=== PATIENT | female | born 1985 | race Caucasian/White ===

== ENCOUNTER 2016-09-26 20:57 | Emergency (ER) | payer BC ==
[2016-09-26 21:04] VITALS: BP 126/66; PULSE 89; RESP 16; TEMP 98.1; O2SAT 98
--- NOTE | 2016-09-26 21:30 | EDPHY ---
H & P Stated Complaint: R dorsal foot redness and swelling since HPI/ROS: CHIEF COMPLAINT: Spider bite HISTORY OF PRESENT ILLNESS: Patient is here with complaints of possible spider bite to the right foot. This with recurred night while in [place]. She did not witness it. She did feel something bite her on the top of the foot. She has had mild to moderate pain and some redness on the top of the foot since that time. Pain has progressed to moderate over the day. There is erythema of the dorsum of the foot. There is pain with ambulation palpation. It is minimal at rest. No radiating pain. No difficulty with dorsiflexion or plantar flexion. No erythema of the avila, calf or leg. No edema of the calf. It is an isolated, focal area on the dorsum of the right foot. No fever or chills. No chest pain. No shortness of breath. No history of venous thrombolic event. No other associated complaints or modifying factors. Tetanus status is up-to-date. REVIEW OF SYSTEMS: Ten systems reviewed and are negative unless otherwise noted in the HPI EXAMINATION General Appearance: Alert, no distress Cardiovascular: Pulses normal throughout. Symmetric DP pulses are 2+. Brisk cap refill Neurological: A&O, sensory symmetric, strength symmetric Skin: Warm and dry. Erythema over the dorsum of the right foot with a diameter of approximately 4 cm. There is no erythema of the right calf or leg. No edema of the right calf or leg. No palpable cords. No evidence of DVT. Extremities: Tenderness over the dorsum of the right foot over the area cellulitis. No tenderness of the calf. No pain with passive dorsiflexion or plantar flexion of the calf. No difficulty with range of motion. Psychiatric: Mood and affect normal DIFFERENTIAL DIAGNOSES: Including but not limited to cellulitis, abscess, DVT, osteomyelitis MDM: 9:25 p.m. Cellulitis of the dorsum of the right foot. No IV drug injection. No evidence of osteomyelitis by history, examination or vital signs. No history of diabetes. She is fully ambulatory with no limited range of motion. Plan for treatment of cellulitis with Bactrim and Keflex. Checking a urine prior to prescribing the Bactrim and she is uncertain if she could be . She has no acute distress and neurovascular intact. 10:00 p.m. Negative urine test. Treat with Bactrim and Keflex. Recommend that she return here in 1-2 days if no improvement. Recommend return sooner for any fever, worsening redness, redness of the calf, edema of the calf. She is comfortable with this plan and discharged home fully ambulatory in stable condition. ED Precautions: Worsening pain. Erythema, edema, cyanosis, pallor, paresthesia or anesthesia. SUPERVISION: This patient was independently evaluated without direct examination by the attending physician. Case was discussed with attending physician. Source: Patient Exam Limitations: No limitations - Personal History LMP (Females 10-55): Over 28 Days Ago Current Tetanus/Diphtheria Vaccine: Yes Tetanus Vaccine Date: less thank 5 years - Medical/Surgical History Hx Asthma: No Hx Chronic Respiratory Disease: No Hx Diabetes: No Hx Cardiac Disease: No Hx Renal Disease: No Hx Cirrhosis: No Hx Alcoholism: No Hx HIV/AIDS: No Hx Splenectomy or Spleen Trauma: No Other PMH: no PSH and PMH - Social History Smoking Status: Former smoker Constitutional: Initial Vital Signs Temperature (C) 98.1 F 09/26/16 21:01 Heart Rate 89 09/26/16 21:01 Respiratory Rate 16 09/26/16 21:01 Blood Pressure 126/66 H 09/26/16 21:01 O2 Sat (%) 98 09/26/16 21:01 O2 Delivery Mode Room Air Allergies/Adverse Reactions: No Known Allergies Allergy (Unverified 09/26/16 21:01) Home Medications: Medication Instructions Recorded Cephalexin [Keflex (*)] 500 mg PO QID #30 cap 09/26/16 Sulfamethox/Tmp 800/160 mg 2 tab PO BID 10 Days 09/26/16 [Bactrim Ds] Medical Decision Making - Data Points Laboratory Results: 09/26/16 21:20 Urine Test NEGATIVE Medications Given: Discontinued Medications Cephalexin (Keflex 500 Mg Prepack#4) 1 btl TAKEHOME EDNOW ONE PRN Reason: Protocol Stop: 09/26/16 21:34 Last Admin: 09/26/16 22:10 Dose: 1 btl Trimethoprim/Sulfamethoxazole (Bactrim Ds Prepack#2) 1 btl TAKEHOME EDNOW ONE Stop: 09/26/16 21:34 Last Admin: 09/26/16 22:12 Dose: 1 btl Departure - Departure Disposition: Home, Routine, Self-Care Clinical Impression: Cellulitis of foot without toes, right Condition: Good Instructions: Cephalexin (By mouth), Sulfamethoxazole/Trimethoprim (By mouth), Cellulitis (ED) Additional Instructions: Antibiotics as discussed. Return here in 1-2 days for recheck of wound if no improvement. Return sooner for worsening of symptoms, fever, chills, edema of the calf or redness of the calf Referrals: NONE *PRIMARY CARE P,. [Primary Care Provider] - As per Instructions Mojgan Urban DO [Doctor of Osteopathy] - As per Instructions Prescriptions: Cephalexin [Keflex (*)] 500 mg PO QID #30 cap Sulfamethox/Tmp 800/160 mg [Bactrim Ds] 2 tab PO BID 10 Days
[2016-09-26] MEDS ORDERED: CEPHALEXIN 500MG PREPACK#4 BTL TAKEHOME ONE (21:33)
[2016-09-26] MEDS ORDERED: SULFAMET/TMP DS PREPACK#2 BTL TAKEHOME ONE (21:33)
== END 2016-09-26 22:12 | disposition home or self-care (01) ==
DX: M79.89 Other specified soft tissue disorders (principal); L03.115 Cellulitis of right lower limb; Z87.891 Personal history of nicotine dependence

== ENCOUNTER 2016-09-27 20:23 | Emergency (ER) | payer BC, OTHER ==
[2016-09-27 20:30] VITALS: TEMP 99.1; O2SAT 99
--- NOTE | 2016-09-27 21:13 | EDPHY ---
H & P Stated Complaint: spider bite 1w ago; swelling/color worse since ER check last night - Personal History LMP (Females 10-55): Over 28 Days Ago Current Tetanus/Diphtheria Vaccine: Yes Current Tetanus Diphtheria and Acellular Pertussis (TDAP): Yes Tetanus Vaccine Date: less than 5 years - Medical/Surgical History Hx Asthma: No Hx Chronic Respiratory Disease: No Hx Diabetes: No Hx Cardiac Disease: No Hx Renal Disease: No Hx Cirrhosis: No Hx Alcoholism: No Hx HIV/AIDS: No Hx Splenectomy or Spleen Trauma: No Other PMH: no PSH and PMH - Social History Smoking Status: Former smoker Time Seen by Provider: 09/27/16 21:01 HPI/ROS: CHIEF COMPLAINT: Right foot swelling HISTORY OF PRESENT ILLNESS: 30-year-old immunocompetent female with no history of chronic skin infection, no history of MRSA seen the ER yesterday afternoon for possible spider bite like lesion to her dorsal right foot started on Bactrim and Keflex in the ER complaining of worsening erythema, induration, swelling to the right foot after taking her medications as prescribed . She has been walking around on area has not been keeping the area consistently elevated.. No fever no chills no nausea no vomiting. REVIEW OF SYSTEMS: A ten point review of systems was performed and is negative with the exception of the items mentioned in the HPI PAST MEDICAL & SURGICAL HISTORY: No history of chronic skin infections/MRSA SOCIAL HISTORY: nonsmoker PHYSICAL EXAM (Prior to examination, patient consented to physical exam, hands were washed and my usual and customary physical exam procedures followed) 1) GENERAL: Well-developed, well-nourished, alert and oriented. Appears to be in no acute distress. 2) HEAD: Normocephalic 3) HEENT: sclera anicteric 4) NECK: Full range of motion, no meningeal signs. 5) LUNGS: Clear auscultation bilaterally, no wheezes, no rhonchi, no retractions. 6) HEART: Regular rate and rhythm 7) ABDOMEN: No guarding, no rebound, no focal tendernes, 8) MUSCULOSKELETAL: erythema to the right foot 9) BACK: no visual or palpable abnormality. 10) SKIN: Right foot: There is a central lesion midfoot with diffuse erythema , induration, tenderness. Compartments are soft. Dorsiflexion plantar flexion of the toes elicits no pain. 11) Psychiatric: Patient is oriented X 3, there is no agitation. DIFFERENTIAL DIAGNOSIS: in no particular include but limited to cellulitis, abscess, necrotizing fasciitis (Chrissy Balderrama Verena) Constitutional: Initial Vital Signs Temperature (C) 37.3 C 09/27/16 20:27 Heart Rate 87 09/27/16 20:27 Respiratory Rate 16 09/27/16 20:27 Blood Pressure 110/68 09/27/16 20:27 O2 Sat (%) 99 09/27/16 20:27 O2 Delivery Mode Room Air Allergies/Adverse Reactions: No Known Allergies Allergy (Verified 09/28/16 13:42) Home Medications: Medication Instructions Recorded Cephalexin [Keflex (*)] 500 mg PO QID #30 cap 09/26/16 Sulfamethox/Tmp 800/160 mg 2 tab PO BID 10 Days 09/26/16 [Bactrim Ds] Cipro 09/28/16 Medical Decision Making ED Course/Re-evaluation: 9:12 p.m.: I reviewed the patient's medical records. She has taken 24 hours of antibiotics and has mild progression of symptoms. I do not think that antibiotics are indicated as I do not think that a sufficient course of outpatient antibiotics have been completed yet. The patient was also seen exam by Dr. Jay Deshpande. I recommended IV antibiotics, discharge and elevation as she notes that she has not been keeping the area consistently elevated (Chrissy Balderrama Verena) Other Provider: PHYSICIAN DOCUMENTATION: The patient was evaluated and managed by the Physician Hostage Negotiator and myself. I have reviewed the chart and agree with the findings and plan of care as documented. In addition, I examined the patient myself at [id number]. History confirmed as patient with recent sunburn after a river trip to the [place] , causing cracking on the dorsum of both feet. Physical findings as follows: Some redness and warmth and tenderness to the dorsum of the right foot but no fluctuance and no lymphangitis. No eschar or blisters. No crepitus. She has taken 1 day of oral antibiotics. Patient does not look septic or toxic. I think it is reasonable for her to continue with oral antibiotics and better immobilization of her foot as she has been walking around in flip-flops. I think that abscess or fasciitis or other deep space infection is not likely. I am the secondary supervising physician. (Jay Deshpande) - Data Points Laboratory Results: Laboratory Results 09/27/16 21:25 09/27/16 21:25 Medications Given: Discontinued Medications Vancomycin/Sodium Chloride (Vancomycin 1 Gm (Premix)) 250 mls @ 250 mls/hr IV EDNOW ONE PRN Reason: Protocol Stop: 09/27/16 22:25 Last Admin: 09/27/16 21:44 Dose: 250 mls Ketorolac Tromethamine (Toradol) 15 mg IVP EDNOW ONE Stop: 09/27/16 22:06 Last Admin: 09/27/16 22:05 Dose: 15 mg Departure - Departure Disposition: Home, Routine, Self-Care Clinical Impression: Cellulitis of right foot Condition: Good Instructions: Cellulitis (ED) Additional Instructions: Keep taking your Bactrim and Keflex antibiotics until finished. Keep your foot elevated whenever possible. Referrals: Return,to the ER in 1 day for recheck [Other] - As per Instructions
[2016-09-27] MEDS ORDERED: VANCOMYCIN HCL/NORMAL SALINE 250 ML IV ONE (21:26)
[2016-09-27 21:31] LABS: % IMMATURE GRANULYOCYTES 0.6 % (0.0-1.1); ABSOLUTE IMMATURE GRANULOCYTES 0.06 10^3/uL (0.00-0.10); ADD DIFF? NO; ADD MORPH? NO; ADD SCAN? NO; ATYPICAL LYMPHOCYTE FLAG 0 (0-99); FRAGMENT RBC FLAG 0 (0-99); HEMATOCRIT 39.4 % (38.0-47.0); HEMOGLOBIN 13.5 g/dL (12.6-16.3); LEFT SHIFT FLG 0 (0-99); LIPEMIA HEMOLYSIS FLAG 90 (0-99); MEAN CELL HEMOGLOBIN 32.8 pg (27.9-34.1); MEAN CELL HEMOGLOBIN CONCENTR. 34.3 g/dL (32.4-36.7); MEAN CELL VOLUME 95.6 fL (81.5-99.8); MEAN PLATELET VOLUME 9.2 fL (8.7-11.7); PLATELET CLUMPS FLAG 0 (0-99); PLATELET COUNT 275 10^3/uL (150-400); RED BLOOD CELL COUNT 4.12 10^6/uL (4.18-5.33); RED CELL DISTRIBUTION WIDTH 13.1 % (11.5-15.2)
[2016-09-27 21:45] LABS: ANION GAP 13 mEq/L (8-16); CALCIUM 9.4 mg/dL (8.5-10.4); CARBON DIOXIDE 24 mEq/l (22-31); CHLORIDE 104 mEq/L (97-110); GLOMERULAR FILTRATION RATE > 60; GLUCOSE 86 mg/dL (70-100); POTASSIUM 3.9 mEq/L (3.5-5.2); SODIUM 141 mEq/L (134-144)
[2016-09-27] MEDS ORDERED: KETOROLAC 15 MG/1 ML SDV IVP ONE (22:05)
[2016-09-27 23:31] VITALS: BP 101/60; PULSE 70; RESP 18
== END 2016-09-27 23:30 | disposition home or self-care (01) ==
DX: L03.115 Cellulitis of right lower limb (principal); Z87.891 Personal history of nicotine dependence
CPT/HCPCS: 96365; 96366; J3370

== ENCOUNTER 2016-09-28 13:32 | Emergency (ER) | payer BC ==
[2016-09-28 13:46] VITALS: BP 129/49; PULSE 61; RESP 16; TEMP 98.6; O2SAT 99
--- NOTE | 2016-09-28 14:34 | EDPHY ---
H & P Stated Complaint: infection r foot here for further ivabx Time Seen by Provider: 09/28/16 14:07 HPI/ROS: CHIEF COMPLAINT: Right foot infection HISTORY OF PRESENT ILLNESS: The patient is a 30-year-old female who comes to the emergency department complaining of an infection to her right foot. She returned home from [facility] and noticed what she thought was a spider bite. She was seen here on the then again on the . She was diagnosed with cellulitis and treated with Bactrim and Keflex. She returned on the and received an IV dose of Ancef. She states that her symptoms improved dramatically after the Ancef but have regressed slightly today. She is here requesting another dose of Ancef. She continues to take the Bactrim and Keflex. Overall here swelling and erythema are much better than they were yesterday. REVIEW OF SYSTEMS: Constitutional: denies: chills, fever, recent illness, recent injury EENTM: denies: blurred vision, double vision, nose congestion Respiratory: denies: cough, shortness of breath Cardiac: denies: chest pain, irregular heart rate, lightheadedness, palpitations Gastrointestinal/Abdominal: denies: abdominal pain, diarrhea, nausea, vomiting, blood streaked stools Genitourinary: denies: dysuria, frequency, hematuria, pain Musculoskeletal: denies: joint pain, muscle pain Skin: See HPI Neurological: denies: headache, numbness, paresthesia, tingling, dizziness, weakness Hematologic/Lymphatic: denies: blood clots, easy bleeding, easy bruising Immunologic/allergic: denies: HIV/AIDS, transplant EXAM: GENERAL: Well-appearing, well-nourished and in no acute distress. HEAD: Atraumatic, normocephalic. EYES: Pupils equal round and reactive to light, extraocular movements intact, sclera anicteric, conjunctiva are normal. ENT: TMs normal, nares patent, oropharynx clear without exudates. Moist mucous membranes. NECK: Normal range of motion, supple without lymphadenopathy or JVD. LUNGS: Breath sounds clear to auscultation bilaterally and equal. No wheezes rales or rhonchi. HEART: Regular rate and rhythm without murmurs, rubs or gallops. ABDOMEN: Soft, nontender, normoactive bowel sounds. No guarding, no rebound. No masses appreciated. BACK: No CVA tenderness, no spinal tenderness, step-offs or deformities EXTREMITIES: Normal range of motion, no pitting or edema. No clubbing or cyanosis. NEUROLOGICAL: Cranial nerves II through XII grossly intact. Normal speech, normal gait. 5/5 strength, normal movement in all extremities, normal sensation PSYCH: Normal mood, normal affect. SKIN: Small firm abscess to the dorsum of right foot. Mild surrounding cellulitis that is regressing. Source: Patient Exam Limitations: No limitations - Personal History LMP (Females 10-55): Over 28 Days Ago Current Tetanus/Diphtheria Vaccine: Yes Tetanus Vaccine Date: less than 5 years - Medical/Surgical History Hx Asthma: No Hx Chronic Respiratory Disease: No Hx Diabetes: No Hx Cardiac Disease: No Hx Renal Disease: No Hx Cirrhosis: No Hx Alcoholism: No Hx HIV/AIDS: No Hx Splenectomy or Spleen Trauma: No Other PMH: no PSH and PMH - Family History Significant Family History: No pertinent family hx - Social History Smoking Status: Former smoker Alcohol Use: Sober Drug Use: None Constitutional: Initial Vital Signs Temperature (C) 37 C 09/28/16 13:43 Heart Rate 61 09/28/16 13:43 Respiratory Rate 16 09/28/16 13:43 Blood Pressure 129/49 H 09/28/16 13:43 O2 Sat (%) 99 09/28/16 13:43 O2 Delivery Mode Room Air Allergies/Adverse Reactions: No Known Allergies Allergy (Verified 09/28/16 13:42) Home Medications: Medication Instructions Recorded Cephalexin [Keflex (*)] 500 mg PO QID #30 cap 09/26/16 Sulfamethox/Tmp 800/160 mg 2 tab PO BID 10 Days 09/26/16 [Bactrim Ds] Cipro 09/28/16 Medical Decision Making Procedures: Procedure: Abscess drainage. The patient's abscess was located on the right foot. I obtained verbal consent from the patient to drain the abscess who was informed about the possibility of bleeding and pain. The abscess was incised with 11 blade scalpel and 1 cc of purulent drainage was expressed. We did irrigate the wound. The patient tolerated the procedure well. The procedure was performed by myself. ED Course/Re-evaluation: Patient tolerated abscess drainage well. She is receiving IV Ancef which makes her happy. I encouraged her to continue the Bactrim and Keflex. Her wound was also irrigated and dressed. - Data Points Medications Given: Discontinued Medications Cefazolin Sodium/Dextrose (Ancef 1 Gm (Premix)) 50 mls @ 200 mls/hr IV EDNOW ONE PRN Reason: Protocol Stop: 09/28/16 14:45 Last Admin: 09/28/16 14:55 Dose: 50 mls Departure - Departure Disposition: Home, Routine, Self-Care Clinical Impression: Abscess Cellulitis Qualifiers: Site of cellulitis: extremity Site of cellulitis of extremity: lower extremity Laterality: right Qualified Code(s): L03.115 - Cellulitis of right lower limb Condition: Fair Instructions: Cellulitis (ED), Abscess (ED) Additional Instructions: Continue taking the Bactrim and Keflex as prescribed. Referrals: Jennifer Sheppard MD [Medical Doctor] - As per Instructions
== END 2016-09-28 15:24 | disposition home or self-care (01) ==
PROC: 0J9Q0ZZ Drainage of Right Foot Subcutaneous Tissue and Fascia, Open Approach (ICD-10-PCS; principal; 2016-09-28)
DX: L03.115 Cellulitis of right lower limb (principal); L02.611 Cutaneous abscess of right foot; Z87.891 Personal history of nicotine dependence
CPT/HCPCS: 96365; J0690